=== PATIENT | female | born 1990 | race Caucasian/White ===

== ENCOUNTER 2019-07-11 16:38 | Emergency (ER) | payer SELFPAY ==
[~2019-07-11] VITALS: Ht 162.6 cm; Wt 60.0 kg
[2019-07-11 17:07] VITALS: Ht 162.6 cm; Wt 60.0 kg
[2019-07-11] MEDS ORDERED: FLAGYL500 MG PO (18:29)
[2019-07-11 18:43] LABS: APPEARANCE CLEAR (CLEAR); BILIRUBIN NEGATIVE (NEGATIVE); COLOR YELLOW (YELLOW); GLUCOSE NEGATIVE (NEGATIVE); KETONE NEGATIVE (NEGATIVE); NITRITE NEGATIVE (NEGATIVE); PROTEIN NEGATIVE (NEGATIVE); SPECIFIC GRAVITY 1.015 (1.005-1.020); UROBILINOGEN NORMAL (NORMAL)
[2019-07-11 18:46] LABS: BACTERIA MODERATE /hpf (NONE SEEN); EPITHELIAL CELLS 0-5 /hpf (0-5); RED CELLS - URINE RARE /hpf (0-5); WHITE CELLS - URINE 0-5 /hpf (0-5)
[2019-07-11 18:56] VITALS: BP 124/63
[2019-07-16 17:08] LABS: CHLAMYDIA TRACHOMATIS, NAA Negative (Negative)
== END 2019-07-11 19:15 | disposition home or self-care (01) ==
LOC: D.ER 16:38
PROVIDERS: Emergency Medicine
DX: Z20.828 Contact with and (suspected) exposure to other viral communicable diseases (principal)

== ENCOUNTER 2020-02-28 13:51 | Emergency (ER) | payer SELFPAY ==
[~2020-02-28] VITALS: Ht 162.6 cm; Wt 70.9 kg
[~2020-02-28 13:51] MED LIST: FLAGYL500 MG PO
[2020-02-28 14:13] VITALS: Ht 162.6 cm; Wt 70.9 kg
[2020-02-28 14:52] LABS: BASOPHILS 0.2 % (0-2); EOSINOPHILS 3.6 % (0-7); HEMATOCRIT 38.7 % (36.0-48.0); HEMOGLOBIN 13.1 g/dL (12-16); IMMATURE GRANULOCYTES 0.2 % (0-5); MCH 30.5 pg (26.0-34.0); MCHC 33.9 g/dL (31.0-37.0); MCV 90.2 fL (80.0-100.0); MEAN PLATELET VOLUME 9.6 fL (7.4-10.4); PLATELET COUNT 220 10x3/uL (130-400); RBC 4.29 10x6/uL (4.00-5.40); RDW 13.1 % (11.5-14.5); WBC 6.5 10x3/uL (4.8-10.8)
[2020-02-28 15:04] LABS: CALC OSMOLALITY 275 mosm/kg (275-300); CALCIUM 8.9 mg/dL (8.5-10.1); CARBON DIOXIDE 27.7 mmol/L (21.0-32.0); CHLORIDE - SERUM 105 mmol/L (98-107); CREATININE - SERUM 0.8 mg/dL (0.6-1.3); GLUCOSE 94 mg/dL (74-106); POTASSIUM - SERUM 3.8 mmol/L (3.5-5.1); SODIUM 140 mmol/L (136-145); UREA NITROGEN 4 mg/dL (7-18); eGFR NON AFRICAN AMERICAN 90 mL/min (90-120)
[2020-02-28 15:33] LABS: ALBUMIN 3.6 g/dL (3.4-5.0); ALKALINE PHOSPHATASE 78 U/L (30-120); ALT (SGPT) 12 U/L (10-68); BILIRUBIN - TOTAL 0.52 mg/dL (0.2-1.3); HCG - QUANTITATIVE (MATERNAL) 19254 mIU/mL
[2020-02-28 16:47] LABS: BILIRUBIN NEGATIVE (NEGATIVE); GLUCOSE NEGATIVE (NEGATIVE); KETONE SMALL mg/dL (NEGATIVE); NITRITE NEGATIVE (NEGATIVE); RED CELLS - URINE 25-50 /hpf (0-5); UROBILINOGEN NORMAL (NORMAL)
[2020-02-28 21:06] VITALS: BP 133/77
== END 2020-02-28 21:14 | disposition home or self-care (01) ==
LOC: D.ER 13:51
PROVIDERS: Family Medicine
DX: O20.0 Threatened abortion (principal); N93.9 Abnormal uterine and vaginal bleeding, unspecified; Z32.01 Encounter for pregnancy test, result positive; Z3A.00 Weeks of gestation of pregnancy not specified

== ENCOUNTER 2020-03-02 03:06 | Inpatient (IN) | payer MEDICAID ==
[~2020-03-02] VITALS: Ht 162.6 cm; Wt 74.5 kg
--- NOTE | 2020-03-02 03:40 | NUR ---
RN AND EDP MCKENZIE AT PT BEDSIDE. EDP PERFORMED PELVIC EXAM.
[2020-03-02 03:42] LABS: BASOPHILS 0.1 % (0-2); HEMATOCRIT 36.7 % (36.0-48.0); HEMOGLOBIN 12.6 g/dL (12-16); IMMATURE GRANULOCYTES 0.3 % (0-5); LYMPHOCYTES 16.3 % (15-50); MCH 30.6 pg (26.0-34.0); MCHC 34.3 g/dL (31.0-37.0); MCV 89.1 fL (80.0-100.0); MEAN PLATELET VOLUME 9.8 fL (7.4-10.4); MONOCYTES 5.5 % (2-11); NEUTROPHILS 75.8 % (40-80); PLATELET COUNT 253 10x3/uL (130-400); RBC 4.12 10x6/uL (4.00-5.40); WBC 17.4 10x3/uL (4.8-10.8)
[2020-03-02 03:51] LABS: CALC OSMOLALITY 277 mosm/kg (275-300); CALCIUM 9.2 mg/dL (8.5-10.1); CARBON DIOXIDE 26.6 mmol/L (21.0-32.0); CHLORIDE - SERUM 101 mmol/L (98-107); CREATININE - SERUM 0.7 mg/dL (0.6-1.3); GLUCOSE 135 mg/dL (74-106); POTASSIUM - SERUM 3.4 mmol/L (3.5-5.1); SODIUM 138 mmol/L (136-145); UREA NITROGEN 13 mg/dL (7-18); eGFR NON AFRICAN AMERICAN > 90 mL/min (90-120)
--- NOTE | 2020-03-02 03:53 | NUR ---
PRODUCTS OF CONCEPTION TAKEN TO LAB
--- NOTE | 2020-03-02 04:05 | NUR ---
PT PROVIDED WATER TO FILL BLADDER PRIOR TO US.
[2020-03-02 04:18] LABS: ALBUMIN 3.9 g/dL (3.4-5.0); ALKALINE PHOSPHATASE 72 U/L (30-120); ALT (SGPT) 16 U/L (10-68); BILIRUBIN - TOTAL 0.66 mg/dL (0.2-1.3); HCG - QUANTITATIVE (MATERNAL) 14140 mIU/mL; PROTEIN - SERUM 7.5 g/dL (6.4-8.2)
--- NOTE | 2020-03-02 04:40 | NUR ---
PT LEFT ED VIA WC FOR US.
--- NOTE | 2020-03-02 05:24 | NUR ---
URINE SPECIMEN SENT TO LAB
[2020-03-02 05:32] LABS: BACTERIA NONE SEEN /hpf (NEGATIVE); BILIRUBIN NEGATIVE (NEGATIVE); EPITHELIAL CELLS NSEEN /hpf (0-5); GLUCOSE NEGATIVE (NEGATIVE); KETONE NEGATIVE (NEGATIVE); NITRITE NEGATIVE (NEGATIVE); UROBILINOGEN NORMAL (NORMAL); WHITE CELLS - URINE 0-5 /hpf (NEGATIVE)
[2020-03-02 05:39] LABS: UDS - AMPHET POSITIVE QUAL (NEGATIVE); UDS - BARB NEGATIVE QUAL (NEGATIVE); UDS - BENZO NEGATIVE QUAL (NEGATIVE); UDS - COCAINE NEGATIVE QUAL (NEGATIVE); UDS - OPIATE POSITIVE QUAL (NEGATIVE); UDS - PCP NEGATIVE QUAL (NEGATIVE); UDS - THC POSITIVE QUAL (NEGATIVE)
--- NOTE | 2020-03-02 05:55 | NUR ---
DR SHARPE AT PT BEDSIDE.
--- NOTE | 2020-03-02 06:04 | NUR ---
PT REPORTS DECREASE IN PAIN AFTER RECEIVING PAIN MEDS ORDERED.
--- NOTE | 2020-03-02 07:23 | NUR ---
ASSUMED CARE OF THIS PT. CURRENTLY SLEEPING ON SIDE, RESPIRATIONS EVEN. WILL COMPLETE ADMIT H&P WHEN AWAKE.
[2020-03-02 07:42] VITALS: BP 119/57
[2020-03-02 08:26] VITALS: BP 113/53
--- NOTE | 2020-03-02 08:30 | NUR ---
AROUSED FROM SLEEP TO COMPLETED ADMISSION H&P. DROWSY. ORIENTED BUT FALLS ASLEEP DURING INTERVIEW. AROUSES QUICKLY, ANSWERS QUESTIONS APPROPRIATELY. SCANT DRIED BROWN BLOOD ON YADI-PAD. TWO CLEAN PADS PLACED. MOVED SNOW TECHNICIAN CONTROLLER TO SIDE. ENCOURAGED TO CALL IF HURTING. CALL LIGHT IN REACH. FELL BACK TO SLEEP AFTER INTERVIEW AND ASSESSMENT. SIDERAILS UP X 2, CALL LIGHT IN REACH. NPO 6+3 WKS MISSED AB.
--- NOTE | 2020-03-02 08:55 | NUR ---
DR SHARPE HERE, HAD HELD US DONE BY . INFORMED OF DEPRESSION SCREENING SCORE OF 16 AND THAT PT FALLS ASLEEP DURING INTERVIEW. NEW ORDERS RECEIVED. CONTINUE PAIN MANAGEMENT AND OBSERVATION.
[2020-03-02 08:56] VITALS: BP 115/56; Ht 162.6 cm; Wt 74.5 kg
--- NOTE | 2020-03-02 09:10 | NUR ---
MAINTENANCE SCHEDULER MS SETTINGS CHANGE TO 1 MG Q 12 MINS. MAINTENANCE SCHEDULER CONTROLLER GIVEN BACK TO PT. ICE CHIPS GIVEN, HOB ELEVATED. MORE ALERT AT THIS TIME. SIDERAILS UP X 2, CALL LIGHT IN REACH. TO CALL IF ANYTHING IS NEEDED AND REMINDED TO CALL FOR ASSISTANCE IF NEEDING TO VOID. VERBALIZED UNDERSTANDING.
--- NOTE | 2020-03-02 09:19 | NUR ---
ALERT, ON PHONE CRYING. SAYS SHE IS FROM [facility] AND BOYFRIEND DOESNT CARE.
[2020-03-02 09:42] VITALS: BP 117/60
--- NOTE | 2020-03-02 09:49 | NUR ---
PT OFF PHONE. ENCOURAGED TO TRY TO REST NOW AND AVOID CONFLICT WITH PARTNER. VERY TEARFUL BUT EVENTUALLY STOPPED CRYING. DENIES NEEDING TO VOID AT THIS TIME. GREEN PROMOTIONS SPECIALIST CONTROLLER IN REACH. CALL LIGHT IN REACH. TO CALL IF ANYTHING IS NEEDED. WILL PROVIDE PT WITH LIST OF [facility] IF NEEDED AND BC OPTIONS.
[2020-03-02 10:42] VITALS: BP 112/54
--- NOTE | 2020-03-02 10:54 | NUR ---
AROUSED EASILY FROM SLEEP. SCANT BLOOD NOTED SUPERFICIALLY ON YADI-PAD. CLEAN PAD ON. TOTAL IV FLUIDS 538 ML, KITCHEN STEWARDESS 6.0 ML. PUMP CLEARED. DENIES NEEDING TO VOID. RESPIRATIONS 16 WHILE SLEEPING. PULSE OX AT 98-100% CONSISTENTLY. PULSE OX REMAINS IN PLACE. SIDE RAILS UP X 2, CALL LIGHT IN REACH. ICE CHIPS AT BEDSIDE. TO CALL IF ANYTHING IS NEEDED.
--- NOTE | 2020-03-02 11:35 | NUR ---
DR SHARPE CALLED TO CHECK ON PATIENT. INFORMED THAT PATIENT HAS BEEN SLEEPING, NO C/O INCREASED PAIN, SCANT BLOOD ON YADI-PADS X 2. PER MD TO LET PATIENT KNOW HE WILL REEVALUATE AROUND 4:00 OR 5:OO TO DISCUSS DC HOME WITH PAIN MEDICATIONS OR IF PT CHOOSES D&C IF AB HAS NOT OCCURRED PRIOR TO THEN.
--- NOTE | 2020-03-02 11:47 | NUR ---
UP TO BATHROOM TO VOID. MISSED [place] HAT AND FLUSHED TOILET BEFORE RN VIEWED. DENIES CLOTS IN TOILET. PINK TINGE NOTED ON TOILET PAPER. CLEAN YADI-PADS X 2 PLACED. RETURNED TO BATHROOM AFTER WASHING HANDS AND FACE. INFORMED PT THAT DR SHARPE CALLED AND SAID HE WOULD REEVALUATE HER AT ABOUT 4:00 OR 5:00 TO DETERMINE IF SHE WANTS TO GO HOME WITH PAIN MEDICATIONS OR ELECTIVE D&C IF SHE HAS NOT MISCARRIED BEFORE THEN. VERBALIZED UNDERSTANDING. INFORMED PT SHE DOES NOT NEED TO MAKE DECISION AT THIS TIME BUT JUST NEEDED TO BE AWARE OF MD PLAN. RETURNED TO BED WITHOUT DIFFICULTY, RN IN ATTENDANCE. 12/10 CRAMPING, USING DIRECTOR CLOUD TRANSFORMATION PRN FOR PAIN. STATES "I'M HUNGRY". INFORMED OF REASON NOT TO EAT NOW. SIDERAILS UP X 2, CALL LIGHT IN REACH.
--- NOTE | 2020-03-02 12:59 | NUR ---
SLEEPING ON BACK. RESPIRATIONS 16, PULSE OX 100%, PULSE 72. SIDERAILS REMAIN UP. CALL LIGHT AND CLOTH EXAMINER MACHINE CONTROLLER IN REACH. REMAINS NPO EXCEPT ICE CHIPS.
--- NOTE | 2020-03-02 13:19 | NUR ---
PT BOYFRIEND ARRIVED TO VISIT PATIENT.
--- NOTE | 2020-03-02 14:10 | NUR ---
LAYING IN BED WITH BOYFRIEND. SAYS SHE FEELS LIKE SHE IS BLEEDING. NO BLOOD NOTED ON YADI-PAD OR CHUX. FEELS SOME CRAMPING 6/10, DROWSY, NO DISTRESS NOTED. ENCOURAGED TO USE COUNTER PROFESSIONAL WHEN NEEDED. COUNTER PROFESSIONAL CONTROLLER AND CALL LIGHT IN REACH. TO CALL IF ANYTHING IS NEEDED.
--- NOTE | 2020-03-02 15:29 | NUR ---
ASSESSMENT DONE, NO VAGINAL BLEEDING NOTED. ASKED PT WHAT SHE HAS CONSIDERED IF DR SHARPE CALLS REGARDING D&C OR GOING HOME WITH PAIN MEDICATION. SAYS SHE WANTS TO GO HOME. "I'M HUNGRY AND I JUST WANT TO GO HOME." FOB IN ROOM.
[2020-03-02 15:30] VITALS: BP 119/59
--- NOTE | 2020-03-02 15:35 | NUR ---
DR SHARPE NOTIFIED THAT PATIENT DESIRES TO GO HOME. HE WILL BE IN TO WRITE DC PRESCRIPTIONS AND WILL PLAN TO F/U WITH HER IN CLINIC ON TUESDAY.
--- NOTE | 2020-03-02 15:43 | NUR ---
CM CONSULT CALLED TO SADIA. PER SADIA SHE WILL COME SEE PT.
--- NOTE | 2020-03-02 15:44 | NUR ---
PT NOTIFIED OF PLAN FOR DC HOME WITH PRESCIPTIONS. WAITING ON MD. DISCUSSED LOSS THROUGH MISCARRIAGE AND WAYS TO REMEMBER INCLUDING NAMING AND REMEMBERING EACH YEAR. WILL PROVIDE RTS INFORMATION ON MISCARRIAGE, SIGNS OF GRIEF, AND MEMORY CARD. VERBALIZED UNDERSTANDING. ALSO INFORMED PT THAT DR SHARPE WILL PLAN TO SEE HER ON TUESDAY FOR F/U SCAN.
--- NOTE | 2020-03-02 15:51 | NUR ---
DR SHARPE HERE. DC ORDERS RECEIVED. CASE MANAGEMENT CONSULT FOR ELEVATED DEPRESSION SCORE ON DEPRESSION SCREEN. 16. CASE MANAGEMENT CONTACTED AND WILL TALK TO PATIENT PRIOR TO DC.
--- NOTE | 2020-03-02 16:09 | NUR ---
DR SHARPE TO ROOM WHEN HE HEARD PATIENT SCREAM. ENCOURAGED PATIENT TO HOLD VOICE DOWN. TO DC HOME.
--- NOTE | 2020-03-02 16:09 | NUR ---
SUDDEN OUTBURST OF CRYING SAYING THAT HER BOYFRIEND WAS GOING TO LEAVE HERE HER. HE RETURNED TO THE ROOM AND SAID THAT HE IS JUST GOING OUT TO SMOKE AND WILL RETURN TO TAKE HER HOME. HE WAS INFORMED THAT SHE CANNOT DRIVE HERSELF HOME TODAY. VERBALIZED UNDERSTANDING. PATIENT CALMED DOWN AND NO LONGER SCREAMING OR CRYING. IV DC'D. SANDWICH TRAY GIVEN. ARBOR PRESS OPERATOR HERE TO DISCUSS OPTIONS FOR F/U DEPRESSION COUNSELING. NO VAGINAL BLEEDING. WILL DC HOME AFTER CASE MANAGEMENT.
[2020-03-02] MEDS ORDERED: HYDROCODON-ACE1 EAC7 PO (16:20)
--- NOTE | 2020-03-02 16:58 | NUR ---
DC HOME AFTER PROVIDING VERBAL AND WRITTEN DC INSTRUCTIONS TO PT AND FOB, TO INCLUDE SAB PRECAUTIONS, DANGER SIGNS, MEDICATION ADMINISTRATION AND FOLLOW. STRESSED IMPORTANCE OF NOT DRIVING WHILE TAKING NARCOTICS OR MIXING WITH ANY OTHER MEDICATIONS, DRUGS OR ALCOHOL. VERBALIZED UNDERSTANDING. ALSO STRESSED IMPORTANCE IF HEAVY BLEEDING, SEVERE PAIN OR SIGNS OF INFECTION TO GO TO ER. IF TISSUE IS PASSED, SAVE IN CUP GIVEN AND CALL DR SHARPE. VERBALIZED UNDERSTANDING. PT SAYS SHE FEELS SLEEPING, NO BLEEDING. ENCOURGED FOB TO TAKE PATIENT HOME AND REST THE REST OF TODAY. INFORMATION GIVEN ON DEPRESSION, BC OPTIONS, SMOKING CESSATION, SIGNS OF GRIEF AND RTS MISCARRIAGE. DC VIA WHEELCHAIR TO CAR. ALL BELONGINGS REMOVED FROM ROOM. FOB DRIVING CAR. TO TAKE PRESCRIPTION TO PHARMACY TO [facility]. TO CALL TUESDAY TO SCHEDULE F/U FOR TUESDAY. ALSO STRESSED IMPORTANCE OF FOLLOW-UP. INFORMATION GIVEN TO PT REGARDING SHELTERS IF NEEDED.
[2020-03-04 08:10] LABS: HEPATITIS C ANTIBODY <0.1 S/CO RAT (0.0-0.9)
[2020-03-04 10:09] LABS: RUBELLA IGG <0.90 index (Immune >0.99)
== END 2020-03-02 16:58 | disposition home or self-care (01) | DRG 779 ==
LOC: D.ER 03:06 → D.LD 05:56 → OBSVTIME 05:56 → D.LD 05:56
PROVIDERS: Family Medicine; ADMIT Obstetrics & Gynecology; ATTEND Obstetrics & Gynecology
DX: O03.9 Complete or unspecified spontaneous abortion without complication (principal)

== ENCOUNTER 2020-03-03 06:41 | Inpatient (IN) | payer MEDICAID ==
[~2020-03-03] VITALS: Ht 162.6 cm; Wt 69.9 kg
[~2020-03-03 06:41] MED LIST changes: +HYDROCODON-ACE1 EAC7 PO
[2020-03-03 07:13] LABS: BASOPHILS 0.2 % (0-2); EOSINOPHILS 2.6 % (0-7); HEMATOCRIT 31.5 % (36.0-48.0); HEMOGLOBIN 10.6 g/dL (12-16); IMMATURE GRANULOCYTES 0.2 % (0-5); LYMPHOCYTES 23.7 % (15-50); MCHC 33.7 g/dL (31.0-37.0); MCV 89.2 fL (80.0-100.0); MEAN PLATELET VOLUME 9.7 fL (7.4-10.4); MONOCYTES 8.1 % (2-11); NEUTROPHILS 65.2 % (40-80); PLATELET COUNT 225 10x3/uL (130-400); RBC 3.53 10x6/uL (4.00-5.40)
[2020-03-03 07:20] LABS: WBC 12.9 10x3/uL (4.8-10.8)
[2020-03-03 07:27] LABS: CALC OSMOLALITY 276 mosm/kg (275-300); CALCIUM 8.7 mg/dL (8.5-10.1); CARBON DIOXIDE 24.8 mmol/L (21.0-32.0); CHLORIDE - SERUM 103 mmol/L (98-107); CREATININE - SERUM 0.8 mg/dL (0.6-1.3); GLUCOSE 118 mg/dL (74-106); POTASSIUM - SERUM 3.5 mmol/L (3.5-5.1); SODIUM 138 mmol/L (136-145); UREA NITROGEN 13 mg/dL (7-18); eGFR NON AFRICAN AMERICAN 90 mL/min (90-120)
[2020-03-03 07:35] LABS: ALBUMIN 3.4 g/dL (3.4-5.0); ALKALINE PHOSPHATASE 66 U/L (30-120); ALT (SGPT) 16 U/L (10-68); BILIRUBIN - TOTAL 0.48 mg/dL (0.2-1.3); PROTEIN - SERUM 6.5 g/dL (6.4-8.2)
--- NOTE | 2020-03-03 08:05 | NUR ---
PATIENT TO U/S WITH TECH VIA W/C.
[2020-03-03 11:12] VITALS: BP 114/63; Ht 162.6 cm; Wt 69.9 kg
--- NOTE | 2020-03-03 11:12 | NUR ---
TO ROOM 1221 FOR CONTINUED CARE. DROWSY BUT EASILY AROUSES TO VOICE. ASSESSMENT COMPLETED PER FLOWSHEET. ANSWERS QUESTIONS APPROPRIATELY WHEN ASK BUT OCCASIONALLY RN HAS TO REPEAT QUESTIONS. PERICARE DONE. LINENS AND GOWN CHANGED. SMALL AMT BRB NOTED TO BE COMING FROM VAGINAL OS. PAD PLACED.
--- NOTE | 2020-03-03 11:34 | NUR ---
SPOKE WITH LUCRECIA IN OR REGARDING PT BEING DROWSY AT TIMES AND CURRENTLY NOT HAVING INFORMED CONSENTS SIGNED. PER LUCRECIA NOTIFY DR. SALEH.
--- NOTE | 2020-03-03 11:38 | NUR ---
DR. SALEH NOTIFIED TO PT ORIENTATION STATUS, REPORTS THAT SHE SPOKE WITH PT IN ER AND PT CONSENTED, CONTINUE TO AROUSE PT AND IF PT AWAKENS OBTAIN CONSENTS.
--- NOTE | 2020-03-03 11:59 | NUR ---
Lenard DIAZ, PLATING ENGINEER TO ROOM. PT AWAKENS AND HAS CONVERSATION WITH DEJAH AND ASKS QUESTIONS.
--- NOTE | 2020-03-03 12:29 | NUR ---
Lenard DIAZ CRNA OUT OF ROOM. PT REMAINS AA&O X4. RN TO BEDSIDE. CONSENTS OBTAINED AND PLACED ON CHART. OR CHECKLIST ALSO COMPLETED.
--- NOTE | 2020-03-03 12:48 | NUR ---
IV IN LEFT HAND FLUSHED WITH 10CC NS WITHOUT DIFFICULTY. IV OF NS CONNECTED AND INFUSING TO GRAVITY; PREOP MEDS GIVEN IV. PT. DROWSY, BUT AWAKENS WHEN SPOKEN TO.
--- NOTE | 2020-03-03 14:20 | NUR ---
OR HERE TO TAKE PT TO SURGERY.
[2020-03-03 15:02] VITALS: BP 116/61
[2020-03-03 15:40] VITALS: BP 118/53
[2020-03-03 16:26] VITALS: BP 113/45
--- NOTE | 2020-03-03 16:26 | NUR ---
REC'D BACK TO ROOM FROM PACU. AA&O X4. PIV INFUSING WITH DOXYCYCLINE AT THIS TIME. VSS. NO VAG BLEEDING NOTED AT THIS TIME. PT REPORTS THAT SHE NEEDS TO VOID. UP TO BR WITH STANDBY ASSIST, VOIDED 800 MLS CLEAR LIGHT YELLOW URINE. PERICARE PER PT, PADS AND PANTIES PROVIDED. ASSISTED BACK TO BED. DENIES NAUSEA. PROVIDED SPRITE PER REQUEST.
--- NOTE | 2020-03-03 17:40 | NUR ---
SITTING UP IN BED EATING DINNER, TRAY. VSS. DENIES NAUSEA. PT REQUESTS TO GO HOME. DR. SALEH NOTIFIED AND ORDERS REC'D TO D/C HOME.
[2020-03-03 18:04] VITALS: BP 109/57
--- NOTE | 2020-03-03 18:04 | NUR ---
REFUSED TORADOL. REQUESTS TO BE D/C'D. L HAND PIV REMOVED WITH TIP INTACT. BANDAID PLACED. REPORTS THAT SIGNIFICANT OTHER IS HERE TO TAKE HER HOME WHEN SHE CAN BE D/C'D. SCANT BRB NOTED TO PAD. VSS.
--- NOTE | 2020-03-03 18:37 | NUR ---
DISCHARGE INSTRUCTIONS PROVIDED TO PT, VERBALIZES UNDERSTANDING. EDUCATION PROVIDED, VERBALIZES UNDERSTANDING. COPIES PROVIDED TO PT. PT OFF UNIT IN W/C IN STABLE CONDITION WITH THIS RN TO AWAITING VECHILE.
--- NOTE | 2020-03-03 20:36 | NUR ---
PRESCRIPTION FOUND IN CHART WHEN BREAKING DOWN FOR DOXYCYCLINE 100 MG PO BID X7 DAYS. PT CONTACTED AND NOTIFIED OF PRESCRIPTION BEING FOUND, PT REQUEST PRESCRIPTION BE CALLED TO [place]. VERBALIZES THAT SHE WILL GEOMETRICIAN TOMORROW.
--- NOTE | 2020-03-03 20:47 | NUR ---
PRESCRIPTION FOR 100 MG PO DOXYCYCLINE BID X7 DAYS GIVEN TO [facility] PHARMACIST, VERIFIED WITH READBACK.
--- NOTE | 2020-03-04 15:15 | OP ---
PATIENT NAME: KRISTYN COLBY MEDICAL RECORD: [id number] :90 LOCATION:[facility]1221 ADMISSION DATE:03/03/20 SURGEON: KAMINI SALEH DO DATE OF OPERATION: 03/03/2020 PREOPERATIVE DIAGNOSIS: Incomplete . POSTOPERATIVE DIAGNOSIS: Incomplete . PRIMARY SURGEON: Kamini Saleh DO ANESTHESIA: General LMA. PROCEDURE: Suction dilation and curettage. FINDINGS: Normal appearing external genitalia, normal appearing vaginal vault, normal appearing cervix dilated 1 cm. SPECIMENS: Product of conception. ESTIMATED BLOOD LOSS: 50 cc. IV FLUIDS: 200 cc. COMPLICATIONS: None. PROCEDURE: The risks, benefits, alternatives and indications of the procedure were discussed with the patient who voiced understanding of the procedure and signed the consent. She was taken to the OR where general anesthesia was administered and found to be adequate. She was placed in the dorsal lithotomy position. She was prepped and draped in the normal sterile fashion. An exam under anesthesia revealed the above findings. A weighted speculum was placed in the posterior aspect of the vagina and a single tooth tenaculum was used to grasp the anterior lip of the cervix. The cervix was already noted to be dilated. A 7 mm straight suction curette was inserted into the uterus. The suction was activated and the uterus was evacuated using the suction curette in a clockwise fashion. A gentle sharp curettage was then performed and a repeat suction evacuation was done to ensure all products of conception were removed from the uterus. All instruments were removed from the uterus. The tenaculum was removed and good hemostasis was noted from the uterus and from that tenaculum site. Hemostasis overall was adequate. All instruments were removed from the vagina. All lap sponge and instrument counts were correct times 2. The patient tolerated the procedure well and she was taken to recovery room in stable condition. TRANSINT:[id number] Voice Confirmation ID: [id number] DOCUMENT ID: [id number] OPERATIVE REPORT [id number] KRISTYN COLBY KAMINI SALEH DO at 1515 CC: [id number] DICTATION DATE: 03/03/20 1556 ASSOCIATE ACCOUNT EXECUTIVE: 03/03/202052 DIS IN 03/03/20 [id number] [place] [address]
== END 2020-03-03 18:37 | disposition home or self-care (01) | DRG 770 ==
LOC: D.ER 06:41 → D.WS 10:33
PROVIDERS: Family Medicine; ADMIT Student in an Organized Health Care Education/Training Program; ATTEND Student in an Organized Health Care Education/Training Program
PROC: 10D17ZZ Extraction of Products of Conception, Retained, Via Natural or Artificial Opening (ICD-10-PCS; principal; 2020-03-03 12:30)
DX: O03.4 Incomplete spontaneous abortion without complication (principal); I10 Essential (primary) hypertension